=== PATIENT | female | born 1975 | race African-American/Black ===

== ENCOUNTER 2018-02-14 09:52 | Emergency (ER) | payer SELFPAY ==
[~2018-02-14] VITALS: Ht 152.4 cm; Wt 106.6 kg
[2018-02-14] MEDS ORDERED: KETOROLAC TROMETHAMINE 60 MG/2 ML VIAL IM ONE (10:15)
[2018-02-14] MEDS ORDERED: HYDROCODONE/APAP 10MG-325MG TAB PO ONE (10:15)
[2018-02-14] MEDS ORDERED: CYCLOBENZAPRINE HCL 10 MG TAB PO ONE (10:15)
== END 2018-02-14 11:13 | disposition home or self-care (01) ==
LOC: ER 09:52
DX: M54.6 Pain in thoracic spine (principal); S23.3XXA Sprain of ligaments of thoracic spine, initial encounter; M54.5 Low back pain; S39.012A Strain of muscle, fascia and tendon of lower back, initial encounter
CPT/HCPCS: 99283; J1885